=== PATIENT | male | born 1955 | race Caucasian/White ===

== ENCOUNTER 2020-09-19 09:40 | Emergency (ER) | payer MEDICARE, OTHER, SELFPAY ==
--- NOTE | 2020-09-19 10:27 | DI.CT.S_ITS ---
PROCEDURE: CT FACIAL BONES WO CON INDICATIONS: trauma TECHNIQUE: Noncontrast 2.5 mm thick axial images acquired from the mandible through the frontal sinuses, with coronal and sagittal reformatting. For radiation dose reduction, the following was used: automated exposure control, adjustment of mA and/or kV according to patient size. COMPARISON: [facility], CT, CT CERVICAL SPINE WO CON, 09/19/2020, 10:27. FINDINGS: Image quality: Excellent. Bones and teeth: Orbital alvares are intact. Sinus alvares show no fracture or deformity. Nasal bones and septum are intact. Visualized portions of the mandible demonstrate no fractures or subluxation. Zygomatic arches are intact. Pterygoid plates are intact. Visualized portions of the skull base and auditory canals are intact. There is an oblique vertical lucency along the right side of the body of the C2 body, only conspicuous on the coronal images. Differential diagnosis include a nondisplaced fracture versus an artifact. Sinuses: Paranasal sinuses are aerated. There is mild mucosal thickening and mucous retention cyst in maxillary sinuses bilaterally. Mastoid air cells are aerated. Soft tissues: There is edema in the right frontal, periorbital and premaxillary soft tissue swelling consistent with soft tissue contusion. A small laceration is noted in the right temporal area. A 1.8 x 2.6 cm hematoma is seen in the right pre maxillary area. No enlarged lymph nodes. No soft tissue lacerations or debris. Vascular: Visualized vascular structures appear normal in the absence of contrast. Bony vascular foramina and canals are intact. IMPRESSION: 1. No facial bone fractures. 2. Possible nondisplaced fracture of the right side of the C2 vertebral body. This was only seen on the coronal images. A differential diagnosis is an artifact. Recommend correlation with focal pain and tenderness. If there is focal pain and tenderness, MRI may be helpful. 3. Right frontal, periorbital and premaxillary soft tissue contusion. There is a 1.8 x 2.6 cm right pre maxillary hematoma. 4. Mild bilateral maxillary sinus disease. The result was discussed with Dr. Hanna. Dictated by: Benton Butler M.D. on 09/19/2020 at 11:19 Approved by: Benton Butler M.D. on 09/19/2020 at 11:42
--- NOTE | 2020-09-19 10:27 | DI.RAD.S_ITS ---
PROCEDURE: XR PELVIS 1-2V INDICATIONS: trauma TECHNIQUE: 2 view(s) of the pelvis acquired. COMPARISON: None. FINDINGS: Bones: Patient is status post prior right total hip arthroplasty. Right hip alignment is anatomic. No gross hardware loosening or failure. No acute pelvic or hip fracture. Left hip joint osteoarthritic changes are noted. No evidence of avascular necrosis of femoral head. No suspicious bony lesions. Soft tissues: Visualized bowel gas pattern is normal. No suspicious soft tissue calcifications. IMPRESSION: No gross acute pelvic or hip fracture. No hip dislocation. Prior right total hip arthroplasty without evidence of gross hardware failure. Dictated by: Delano Light M.D. on 09/19/2020 at 11:20 Approved by: Delano Light M.D. on 09/19/2020 at 11:21
--- NOTE | 2020-09-19 10:27 | DI.RAD.S_ITS ---
PROCEDURE: XR CHEST 1V INDICATIONS: trauma TECHNIQUE: One view of the chest was acquired. COMPARISON: None. FINDINGS: Surgical changes and devices: None. Lungs and pleura: Lungs are clear. No pleural effusions or pneumothorax. Mediastinum: Mediastinal contours appear normal. Heart size is normal. Bones and chest wall: No suspicious bony lesions. Overlying soft tissues appear unremarkable. IMPRESSION: No acute cardiopulmonary pathology. Dictated by: Delano Light M.D. on 09/19/2020 at 11:18 Approved by: Delano Light M.D. on 09/19/2020 at 11:18
--- NOTE | 2020-09-19 10:27 | DI.CT.S_ITS ---
PROCEDURE: CT HEAD/BRAIN WO CON INDICATIONS: trauma TECHNIQUE: Noncontrast 4.5 mm thick angled axial sections acquired from the foramen magnum to the vertex, with coronal and sagittal reformats. For radiation dose reduction, the following was used: automated exposure control, adjustment of mA and/or kV according to patient size. COMPARISON: [facility], CT, CT FACIAL BONES WO CON, 09/19/2020, 10:27. FINDINGS: Image quality: Excellent. CSF spaces: Basal cisterns are patent. No extra-axial fluid collections. The ventricles are symmetric in size and shape. Brain: No intracranial bleeds or masses. There is cerebral volume loss for age, with resultant ventricular and sulcal prominence. There are periventricular and deep white matter chronic small vessel ischemic changes. There is intracranial internal carotid artery atherosclerosis. Skull and face: Calvarium appears intact, without suspicious lesions. There is prominent right periorbital soft tissue edema as well as what appears to be focal hematoma measuring approximately 25 mm. There is a slight indentation of the superior right orbital wall in addition, focus of irregularity is noted in the inferior right orbital wall with fat herniation. Sinuses: Visualized sinuses and mastoids are clear. IMPRESSION: 1. No acute intracranial process. 2. Mild atrophy and chronic microvascular ischemic changes. 3. Suspected right superior and inferior orbital wall fractures as above. Please see CT facial bones report for further evaluation. Dictated by: Yane Kaur M.D. on 09/19/2020 at 11:03 Approved by: Yane Kaur M.D. on 09/19/2020 at 11:31
--- NOTE | 2020-09-19 10:27 | DI.CT.S_ITS ---
PROCEDURE: CT CERVICAL SPINE WO CON INDICATIONS: trauma TECHNIQUE: Noncontrast 3 mm thick sections acquired from the skull base to the T4 level. Sagittal and coronal reformats were then constructed. For radiation dose reduction, the following was used: automated exposure control, adjustment of mA and/or kV according to patient size. COMPARISON: None. FINDINGS: Image quality: Excellent. Bones: No fractures or dislocations. There are in disc disease, ktdfpyyi-sn-rkdbmy at C5-C6 and moderate at C 4-C5 and C6-C7. Mild bilateral facet arthropathy is present, most pronounced at C4-C5 and C5-C6 on the left. Mild central canal stenosis at C4-C5 and C5-C6. Tyoqwbxd-gn-ybfwyb bilateral foraminal stenosis at C5-C6. Visualized superior ribs are intact. Soft tissues: Prevertebral soft tissues are normal in thickness. No paravertebral hematomas. No apical pneumothoraces. IMPRESSION: 1. No fracture. 2. Degenerative changes in cervical spine as described. Dictated by: Benton Butler M.D. on 09/19/2020 at 11:13 Approved by: Benton Butler M.D. on 09/19/2020 at 11:19
--- NOTE | 2020-09-19 10:50 | PC.NURSE ---
Addendum entered by Karla Navarro R.N. 09/19/20 11:40: Soft C-Collar placed at time of Modified code trauma call, pt assessment. Original Note: Sof
[2020-09-19 10:52] LABS: Add Manual Diff / Slide Review NO; Basophils Absolute Auto 0 /uL (0-100); Basophils Percent Auto 0.4 % (0-2); Eosinophils Absolute Auto 0 /uL (0-450); Eosinophils Percent Auto 0.7 % (2-4); Hematocrit 46.3 % (41-53); Hemoglobin 15.3 g/dL (13.5-17.5); Lymphocytes Absolute Auto 900 /uL (1100-4500); Lymphocytes Percent Auto 13.9 % (25-40); Mean Corpuscular Hemoglobin 31.6 PG (26-34); Mean Corpuscular Volume 95.7 fL (80-100); Monocytes Absolute Auto 600 /uL (0-900); Monocytes Percent Auto 9.7 % (3-14); Neutrophils Absolute Auto 5000 /uL (1500-7000); Neutrophils Percent Auto 75.3 % (50-75); Platelet Count 215 X10^3/uL (150-400); Red Blood Cell Count 4.84 X10^6/uL (4.5-5.9); Red Cell Distribution Width 14.2 % (11.6-14.8); White Blood Cell Count 6.6 X10^3/uL (4.5-11.0)
[2020-09-19 11:04] LABS: Alanine Aminotransferase 8 IU/L (<50); Albumin 4.2 g/dL (3.5-5.0); Albumin Globulin Ratio 1.5 (1.0-2.8); Alkaline Phosphatase 103 U/L (38-126); Aspartate Aminotransferase 20 IU/L (17-59); BUN Creatinine Ratio 22.1 (6-22); Bilirubin Total 0.6 mg/dL (0.2-1.3); Blood Urea Nitrogen 15 mg/dL (9-20); Calcium 9.2 mg/dL (8.4-10.2); Carbon Dioxide 28 mmol/L (22-32); Chloride 108 mmol/L (98-107); Estimated Glomerular Filt Rate > 60.0 mL/min (>60); Globulin 2.8 g/dL (1.7-4.1); Glucose 102 mg/dL (80-110); HEMOLYSIS 25 (0-50); Potassium 4.2 mmol/L (3.4-5.1); Sodium 139 mmol/L (137-145)
[2020-09-19 11:15] LABS: Troponin I < 0.012 ng/mL (0.01-0.034)
[2020-09-19 11:20] LABS: Bacteria Urine None Seen; RBC Urine None Seen (0-5/HPF)
[2020-09-19 11:21] LABS: Appearance Urine UA CLEAR; Bilirubin Urine UA NEGATIVE (NEGATIVE); Color Urine UA YELLOW; Glucose Urine UA NEGATIVE (Negative); Ketones Urine UA TRACE (NEGATIVE); Leukocyte Esterase Urine UA NEGATIVE (NEGATIVE); Nitrite Urine UA NEGATIVE (Negative); Occult Blood Urine UA NEGATIVE (Negative); Protein Urine UA NEGATIVE (Negative); Urobilinogen Urine UA 0.2 E.U./dL (0.2); pH Urine UA 7.5 (4.5-8.0)
[2020-09-19] MEDS: TET,DIPH,PERTUSS(ACELL),VAC/PF 0.5 ML SYRINGE IM (11:22)
--- NOTE | 2020-09-19 11:35 | ED_ITS ---
HPI - Fall General Chief Complaint: Fall Stated Complaint: fall/cut on face Time Seen by Provider: 09/19/20 10:20 Source: patient and family Mode of arrival: Wheelchair History of Present Illness HPI Narrative: 65-year-old gentleman with a history of progressive Parkinson's disease and multiple falls were related to the Parkinson's disease. Walk down the stairs, twisted, turned, fell and landed on his left eye. He denies loss of consciousness, he denies neck pain and he denies any other injuries other than some minor abrasions to his knees. He does note that he has been falling more recently due to his Parkinson's disease and is concerned about the degree of unsteadiness. He has a walker available at home but does not use a wheelchair. His works full-time and he is typically home by himself during the day Related Data Previous Rx's Medication Instructions Recorded oxycodone-acetaminophen 1 tab PO Q6H PRN #20 tab 09/19/20 Allergies Allergy/AdvReac Type Severity Reaction Status Date / Time tetracycline Allergy Mild Rash Verified 09/19/20 10:22 Review of Systems Review of Systems Narrative: Pertinent positive and negative findings as per HPI Remainder of review of systems is otherwise unremarkable for Constitutional: Fevers, chills ENT: No sore throat, ear pain CV: Chest pain, palpitations, dyspnea on exertion Respiratory: Cough, wheeze, dyspnea GI: Nausea, vomiting, : Dysuria, hematuria, flank pain Skin: Rashes, nonhealing lesions Neuro: Syncope, dizziness, Patient History Medical History Frequent falls Parkinsons disease Exam Narrative Exam Narrative: General: Obvious swelling bruising and injury to the right eyebrow. Able to give a complete and coherent history. Well-nourished well- developed HEENT: Moist mucous membranes, normal sclera with reactive pupils, right eye lateral subconjunctival injection, no restricted eye movements and any plane. Significant hematoma around the right eye. 3 cm scratch above the right brow not full-thickness and not requiring repair Neck: No JVD, supple, mild central cervical spine tenderness to palpation (chronically extended neck due to previous disc herniations) Respiratory: Lungs are clear to auscultation, no wheezing no rales no rhonchi. Full and symmetrical air movement Chest: No tenderness along clavicles or with chest wall with manipulation. No contusions to the chest wall or shoulders Cardiac: Regular rate and rhythm no murmurs no bruits Abdomen: Soft nontender good bowel tones, no flank pain Skin: Warm and dry, no rashes Neurologic: Parkinsonian-type tremor with mild rigidity but otherwise Grossly neurologically intact with no obvious asymmetries or abnormalities Extremities: No trauma, well perfused. Minor abrasion to the left knee without hematoma or swelling. Minor abrasion to the right spear without hematoma or swelling. Psych: Cooperative, appropriate insight and affect Initial Vital Signs Initial Vital Signs: Vital Signs Temperature 98.4 F 09/19/20 11:36 Pulse Rate 66 09/19/20 11:36 Respiratory Rate 16 09/19/20 11:36 Blood Pressure 160/79 H 09/19/20 11:36 Pulse Oximetry 96 09/19/20 11:36 Course Orders Ordered: ED Orders 09/19/20 10:27 CT cervical spine wo con Stat CT facial bones wo con Stat CT head/brain wo con Stat XR chest 1V Stat XR pelvis 1-2V Stat 09/19/20 10:36 EKG-12 Lead Routine 09/19/20 10:46 Complete Blood Count AUTO DIFF Stat Comprehensive Metabolic Panel Stat Troponin I Stat Type and Screen Stat 09/19/20 11:15 Urinalysis and Microscopic Stat Urine Culture Stat 09/19/20 12:34 MR cervical spine wo con Stat Hydromorphone HCl (Hydromorphone 0.5 Mg Inj) 0.5 mg IV Q15MIN PRN PRN Reason: Pain, Last Admin: 09/19/20 11:59 Dose: 0.5 mg Documented by: MARILYNN Discontinued Medications Carbidopa/Levodopa (Carbidopa-Levodopa 25/100 Tablet) 1 each PO NOW ONE Stop: 09/19/20 11:47 Last Admin: 09/19/20 13:29 Dose: 1 each Documented by: MARILYNN Carbidopa/Levodopa (Carbidopa-Levodopa Er 50/200 Tablet) 1 each PO NOW ONE Stop: 09/19/20 11:47 Last Admin: 09/19/20 13:29 Dose: 1 each Documented by: MARILYNN Diphtheria/Tetanus/Acell Pertussis (Tet,Diph,Pertuss(Acell),Vac/Pf 0.5 Ml Syringe) 0.5 ml IM .ONCE ONE Stop: 09/19/20 10:25 Last Admin: 09/19/20 11:22 Dose: 0.5 ml Documented by: TOMI Ondansetron HCl (Ondansetron 4 Mg/2 Ml Inj) 4 mg IV NOW ONE Stop: 09/19/20 11:47 Last Admin: 09/19/20 11:59 Dose: 4 mg Documented by: MARILYNN Vital Signs Vital signs: Vital Signs - 8 hr 09/19/20 11:36 09/19/20 14:56 Temperature 98.4 F 97.8 F Pulse Rate 66 99 H Respiratory Rate 16 16 Blood Pressure 160/79 H 185/94 H Pulse Oximetry 96 100 MDM - Fall Medical Records Attestation: I reviewed the patient's medical records. Lab Data Attestation: I reviewed the patient's lab results. Result diagrams: 09/19/20 10:46 09/19/20 10:46 Labs: Lab Results 09/19/20 09/19/20 09/19/20 Range/Units 10:46 10:46 10:46 WBC 6.6 (4.5-11.0) X10^3/uL RBC 4.84 (4.5-5.9) X10^6/uL Hgb 15.3 (13.5-17.5) g/dL Hct 46.3 (41-53) % MCV 95.7 (80-100) fL MCH 31.6 (26-34) PG MCHC 33.0 (30-36) % RDW 14.2 (11.6-14.8) % Plt Count 215 (150-400) X10^3/uL Neut % (Auto) 75.3 H (50-75) % Lymph % (Auto) 13.9 L (25-40) % Sterling % (Auto) 9.7 (3-14) % Eos % (Auto) 0.7 L (2-4) % Baso % (Auto) 0.4 (0-2) % Neut # (Auto) 5000 (9728-1111) /uL Lymph # (Auto) 900 L (7146-7504) /uL Sterling # (Auto) 600 (0-900) /uL Eos # (Auto) 0 (0-450) /uL Baso # (Auto) 0 (0-100) /uL Sodium 139 (137-145) mmol/L Potassium 4.2 (3.4-5.1) mmol/L Chloride 108 H (98-107) mmol/L Carbon Dioxide 28 (22-32) mmol/L BUN 15 (9-20) mg/dL Creatinine 0.68 (0.66-1.25) mg/dL Estimated GFR > 60.0 (>60) mL/min BUN/Creatinine Ratio 22.1 H (6-22) Glucose 102 (80-110) mg/dL Calcium 9.2 (8.4-10.2) mg/dL Total Bilirubin 0.6 (0.2-1.3) mg/dL AST 20 (17-59) IU/L ALT 8 (<50) IU/L Alkaline Phosphatase 103 (38-126) U/L Troponin I < 0.012 (0.01-0.034) ng/mL Total Protein 7.0 (6.3-8.2) g/dL Albumin 4.2 (3.5-5.0) g/dL Globulin 2.8 (1.7-4.1) g/dL Albumin/Globulin Ratio 1.5 (1.0-2.8) Urine Color Urine Appearance Urine pH (4.5-8.0) Ur Specific [place] (1.000-1.035) Urine Protein (Negative) Urine Glucose (UA) (Negative) g/dL Urine Ketones (NEGATIVE) Urine Occult Blood (Negative) Urine Nitrate (Negative) Urine Bilirubin (NEGATIVE) Urine Urobilinogen (0.2) E.U./dL Ur Leukocyte Esterase (NEGATIVE) Urine RBC (0-5/HPF) Urine WBC (0-5/HPF) Amorphous Sediment Urine Bacteria (None) Ur Culture Indicated? Blood Type O Positive Antibody Screen Negative 09/19/20 Range/Units 11:15 WBC (4.5-11.0) X10^3/uL RBC (4.5-5.9) X10^6/uL Hgb (13.5-17.5) g/dL Hct (41-53) % MCV (80-100) fL MCH (26-34) PG MCHC (30-36) % RDW (11.6-14.8) % Plt Count (150-400) X10^3/uL Neut % (Auto) (50-75) % Lymph % (Auto) (25-40) % Sterling % (Auto) (3-14) % Eos % (Auto) (2-4) % Baso % (Auto) (0-2) % Neut # (Auto) (0817-7766) /uL Lymph # (Auto) (8817-8272) /uL Sterling # (Auto) (0-900) /uL Eos # (Auto) (0-450) /uL Baso # (Auto) (0-100) /uL Sodium (137-145) mmol/L Potassium (3.4-5.1) mmol/L Chloride (98-107) mmol/L Carbon Dioxide (22-32) mmol/L BUN (9-20) mg/dL Creatinine (0.66-1.25) mg/dL Estimated GFR (>60) mL/min BUN/Creatinine Ratio (6-22) Glucose (80-110) mg/dL Calcium (8.4-10.2) mg/dL Total Bilirubin (0.2-1.3) mg/dL AST (17-59) IU/L ALT (<50) IU/L Alkaline Phosphatase (38-126) U/L Troponin I (0.01-0.034) ng/mL Total Protein (6.3-8.2) g/dL Albumin (3.5-5.0) g/dL Globulin (1.7-4.1) g/dL Albumin/Globulin Ratio (1.0-2.8) Urine Color Yellow Urine Appearance Clear Urine pH 7.5 (4.5-8.0) Ur Specific [place] 1.020 (1.000-1.035) Urine Protein Negative (Negative) Urine Glucose (UA) Negative (Negative) g/dL Urine Ketones Trace H (NEGATIVE) Urine Occult Blood Negative (Negative) Urine Nitrate Negative (Negative) Urine Bilirubin Negative (NEGATIVE) Urine Urobilinogen 0.2 (0.2) E.U./dL Ur Leukocyte Esterase Negative (NEGATIVE) Urine RBC None seen (0-5/HPF) Urine WBC 5-10/hpf H (0-5/HPF) Amorphous Sediment 1+ Urine Bacteria None seen (None) Ur Culture Indicated? Specimen cultured Blood Type Antibody Screen Imaging Data CT - cervical spine: Radiologist's Impression: FINDINGS: Image quality: Excellent. Bones: No fractures or dislocations. There are in disc disease, ekctahkl-ei-ipomis at C5-C6 and moderate at C 4-C5 and C6-C7. Mild bilateral facet arthropathy is present, most pronounced at C4-C5 and C5-C6 on the left. Mild central canal stenosis at C4-C5 and C5-C6. Oetynnei-bx-gbfszl bilateral foraminal stenosis at C5-C6. Visualized superior ribs are intact. Soft tissues: Prevertebral soft tissues are normal in thickness. No paravertebral hematomas. No apical pneumothoraces. IMPRESSION: 1. No fracture. 2. Degenerative changes in cervical spine as described. Dictated by: Benton Butler M.D. on 09/19/2020 at 11:13 Chest x-ray: Radiologist's Impression: FINDINGS: Surgical changes and devices: None. Lungs and pleura: Lungs are clear. No pleural effusions or pneumothorax. Mediastinum: Mediastinal contours appear normal. Heart size is normal. Bones and chest wall: No suspicious bony lesions. Overlying soft tissues appear unremarkable. IMPRESSION: No acute cardiopulmonary pathology. Dictated by: Delano Light M.D. on 09/19/2020 at 11:18 MRI cervical spine: Radiologist's Impression: Chronic changes and known disc pathology with no exacerbations and the C2 concern noted on CT scan is not seen on MRI. ECG Data Attestation: I personally reviewed and interpreted this ECG as follows: Interpretation: Sinus rhythm at a rate of 61 Normal intervals, normal axis No acute ischemic changes MDM Narrative Medical decision making narrative: 65-year-old gentleman with Parkinson's disease becoming more and more unsteady with increasing falls. Fell off his stairs this morning approximately a 2 ft fall landing on the right side of his face sustaining a black eye mild abrasion above the brow not requiring sutures and mild subconjunctival hemorrhage without any orbital fractures or intracranial hemorrhage. He and his are concerned that with his advancing Parkinson's disease he is not safe to be home alone and she is not able to stay home during the day to be with him all the time. His instability increases with pain medications that likely are going to be needed to deal with the pain after his fall. They request hospitalization. Explained that progressive Parkinson's disease unfortunately is not a reason for hospitalization and likely will not meet medical criteria for admission. Did offer social work consult to see if there was home options were help with home care that we might be able to offer. 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 Discharge Plan Departure Patient Disposition: Home Clinical Impression: Parkinsons disease, Frequent falls, Periorbital hematoma of right eye Subconjunctival bleed Qualifiers: Laterality: right Qualified Code(s): H11.31 - Conjunctival hemorrhage, right eye Instructions: DI for Eye Contusion Activity Restrictions/Additional Instructions: Thank you for coming in today. I am sorry that you fell. Fortunately, you did not severely injury yourself with your fall. There was no bleeding into your head, there is no eyeball damage and there is no fractures around her eye. The scratch above your I will heal nicely and does not need sutures. The bruise around her I will likely take a couple of weeks to c ompletely go away and you may notice bruising spreading all the way down your face and under your chin. You likely will find new places that are sore all over by the time you wake up tomorrow. If you have other sites that seem particularly troublesome and are getting worse, please feel free to come in for further evaluation. Using 400 mg of ibuprofen (2 ndrc-uuj-qvgzenc pills) and 1 Tylenol every 6 hours can be very helpful in controlling pain. For severe pain using 400 mg of ibuprofen and 1 Percocet can be helpful. If you would like to use narcotic for pain control you certainly can do so. You do understand that it increases your risk for falls, confusion and can also cause constipation. Prescriptions: New oxycodone-acetaminophen 5-325 mg tablet 1 tab PO Q6H PRN (Reason: pain) Qty: 20 RF: 0 Referrals: Alea Queen MD [Primary Care Provider] -
[2020-09-19 11:36] VITALS: BP 160/79; PULSE 66; RESP 16; TEMP 36.9; O2SAT 96
--- NOTE | 2020-09-19 11:39 | PC.NURSE ---
Soft C-Collar removed.
[2020-09-19 11:41] LABS: Amorphous Sediment Urine 1+; Culture Indicated Urine Specimen Cultured; WBC Urine 5-10/HPF (0-5/HPF)
--- NOTE | 2020-09-19 11:41 | PC.NURSE ---
Soft C-Collar reapplied per Dr. Hanna. Provider states she has changed mind and would like further imaging.
[2020-09-19] MEDS: HYDROMORPHONE 0.5 MG INJ IV (11:59)
[2020-09-19] MEDS: ONDANSETRON 4 MG/2 ML INJ IV (11:59)
--- NOTE | 2020-09-19 12:34 | DI.MRI.S_ITS ---
PROCEDURE: MR CERVICAL SPINE WO CON INDICATIONS: possibe C2 fx, trauma TECHNIQUE: Noncontrast sagittal T1 spin echo and T2 fast spin echo, sagittal STIR, foraminal oblique sagittal T2 fast spin echo, and axial gradient echo or T2 fast spin echo through the cervical spine. COMPARISON: [facility], CT, CT CERVICAL SPINE WO CON, 09/19/2020, 10:27. [facility], CT, CT FACIAL BONES WO CON, 09/19/2020, 10:27. FINDINGS: Image quality: Excellent. Alignment and Curvature: There is normal bony alignment. Bone Marrow: Marrow demonstrates normal overall signal. Spinal Cord: Visualized spinal cord has normal size and signal. No cerebellar tonsillar herniation. Paraspinous Soft Tissues: No paravertebral masses. Prevertebral soft tissues are normal in thickness. C2-C3: Normal appearance intervertebral disc. Mild left facet arthropathy. There is moderate atlantoaxial joint degeneration. No central canal or foraminal stenosis C3-C4: Mild loss of disc height and disc desiccation. There is diffuse posterior disc bulge. Bilateral uncovertebral hypertrophy. Moderate facet arthropathy bilaterally. The central canal is is mildly narrowed. Whqadcbq-iz-bqsqti bilateral foraminal stenosis. C4-C5: Mild loss of disc height and disc desiccation. There is diffuse posterior disc bulge. Bilateral uncovertebral hypertrophy. Moderate facet arthropathy bilaterally. The central canal is is mildly narrowed. Nmeyxjfp-dh-fqpyts bilateral foraminal stenosis. C5-C6: Gtydtzmg-ks-apjlvr loss of disc height and moderate disc desiccation. There is diffuse posterior disc bulge and posterior disc osteophyte complex. Bilateral uncovertebral hypertrophy and large posterior uncovertebral osteophytes. Moderate facet arthropathy bilaterally. The central canal is is mildly narrowed. There is severe bilateral foraminal stenosis. C6-C7: Preserved disc height. Mild disc desiccation and posterior disc bulge. No central canal or foraminal stenosis. C7-T1: Normal appearance. IMPRESSION: 1. No acute cervical spine fractures. The lucency in the right side of the C2 vertebral body seen on the comparison CT is most likely caused by an artifact. 2. Multilevel degenerative disc and facet disease as described. 3. Mild central canal stenosis at C3-C4, C4-C5 and C5-C6. 4. Multilevel foraminal stenoses, severe at C5-C6 bilaterally, ftapgmop-fd-ryyjuy at C3-C4 bilaterally and C4-C5 bilaterally. Dictated by: Benton Butler M.D. on 09/19/2020 at 12:30 Approved by: Benton Butler M.D. on 09/19/2020 at 12:41
[2020-09-19] MEDS: CARBIDOPA-LEVODOPA ER 50/200 TABLET 1 EACH PO (13:29)
[2020-09-19] MEDS: CARBIDOPA-LEVODOPA 25/100 TABLET 1 EACH PO (13:29)
--- NOTE | 2020-09-19 14:48 | PC.NURSE ---
manager rental at bedside.
[2020-09-19 14:56] VITALS: BP 185/94; PULSE 99; RESP 16; TEMP 36.6; O2SAT 100
== END 2020-09-19 15:08 | disposition home or self-care (01) ==
PROVIDERS: Emergency Provider Emergency Medicine; PCP Family Medicine
DX: H11.31 Conjunctival hemorrhage, right eye (principal); G20 Parkinson's disease; S05.11XA Contusion of eyeball and orbital tissues, right eye, initial encounter; R29.6 Repeated falls; W19.XXXA Unspecified fall, initial encounter; Z23 Encounter for immunization
CPT/HCPCS: 36415; 70450; 70486; 71045; 72125; 72141; 72170; 80053; 81001; 84484; 85025; 86850; 86900; 86901; 87086; 90471; 93005; 93010; 96374; 96375; 99285; 90715; J1170; J2405